=== PATIENT | male | born 1950 | race Caucasian/White ===

== ENCOUNTER 2018-06-12 14:22 | Emergency (ER) | payer BC ==
--- NOTE | 2018-06-12 16:09 | UC ---
Lower Extremity/Ankle HPI - HPI Summary HPI Summary: 67 y/o male presents to the urgent care c/o left ankle and foot pain s/p injury while getting into his war this morning around 1100PM. Pt reports he caught his foot in the car door door as he was getting into the car. Pain is 6/10. - History of Current Complaint Stated Complaint: FOOT INJURY Time Seen by Provider: 06/12/18 16:08 Hx Obtained From: Patient Onset/Duration: Sudden Onset, Lasting Hours - 8hrs, Still Present Severity Initially: Moderate Severity Currently: Moderate Pain Intensity: 6 - w/ movement or weight bearing Pain Scale Used: 0-10 Numeric Aggravating Factor(s): Standing, Ambulation Alleviating Factor(s): Rest, OTC Meds Able to Bear Weight: Yes - Risk Factors Gout Risk Factors: Negative DVT Risk Factors: Negative Septic Arthritis Risk Factor: Negative - Allergies/Home Medications Allergies/Adverse Reactions: Allergies Allergy/AdvReac Type Severity Reaction Status Date / Time No Known Allergies Allergy Verified 06/12/18 16:14 PMH/Surg Hx/FS Hx/Imm Hx Previously Healthy: Yes Endocrine History: Hypothyroidism, Dyslipidemia Cardiovascular History: Hypertension, Atrial Fibrillation Other GI/ History: Polycystic kidney disease Cancer History: Prostate Cancer Other History Of: Anticoagulant Therapy - not current - Surgical History Surgical History: Yes Surgery Procedure, Year, and Place: 03/2013 [place] [facility] [place], [place]. 2009 CARDIOVERSION, [place]. 08/2012 KIDNEY STONE [place]RI[place] [facility] [place] 2002 ARTHROSCOPIC SURGERY RIGHT SHOULDER, [place]. RIGHT FOOT. HERNIA REPAIR, [place] 2011 - Social History Alcohol Use: Rare Substance Use Type: None Smoking Status (MU): Never Smoked Tobacco - Immunization History Most Recent Influenza Vaccination: 2013 Review of Systems Constitutional: Negative Skin: Negative Eyes: Negative ENT: Negative Respiratory: Negative Cardiovascular: Negative Gastrointestinal: Negative Genitourinary: Negative Motor: Negative Neurovascular: Negative Musculoskeletal: Decreased ROM - left ankle and foot, Other: - left ankle pain and foot s/p injury Neurological: Negative Psychological: Negative Is Patient Immunocompromised?: No All Other Systems Reviewed And Are Negative: Yes Physical Exam - Summary Physical Exam Summary: Vital Signs Reviewed: Yes General: well developed, well nourished male, sitting in the examining table w/ o any apparent distress Eyes: Positive: Conjunctiva Clear - PERRLA, EOMI, ENT: Positive: Normal ENT inspection, Hearing grossly normal, Pharynx normal, TMs normal Neck: Positive: Supple, Nontender, No Lymphadenopathy Respiratory: Positive: Chest non-tender, Lungs clear, Normal breath sounds, No respiratory distress Cardiovascular: Positive: RRR, No Murmur, Pulses Normal, Brisk Capillary Refill Abdomen Description: Positive: Nontender, No Organomegaly, Soft. Negative: CVA Tenderness (R), CVA Tenderness (L) Bowel Sounds: Positive: Present Musculoskeletal: - Left Ankle: Pt is able to bear weight and ambulate w/ limping. The R ankle is without obvious asymmetry or deformity when compared to the L ankle. Decreased ROM due to pain. Moderate swelling at the lateral malleolus, with tenderness to palpation. No ecchymosis or bruising observed. Tenderness to palpation over the medial malleolus , no swelling observed. Talar tilt test is negative for ligament laxity to valgus or varus stress. Negative anterior drawer. Peroneal nerve is intact with strong eversion and plantar flexion. Positive sensation over the Rt foot and Rt ankle, positive pulses, capillary refill intact Neurological Exam: Normal Psychological Exam: Normal Skin: warm and dry Triage Information Reviewed: Yes Lower Extremity Course/Dx - Differential Dx/Diagnosis Differential Diagnosis/HQI/PQRI: Contusion, Fracture (Closed), Sprain, Strain, Tendonitis Provider Diagnoses: 1- left ankle and foot pain s/p injury. 2- left ankle w/ a small avulsion fracture of the lateral malleolus. 3- Syncope. 4- Bradycardia Discharge - Discharge Plan Condition: Stable Patient Education Materials: Ankle Fracture (ED), Syncope (ED), Low-Sodium Diet (ED) Referrals: Sudhir Gross MD [Medical Doctor] - Luzmaria Bowen MD [Primary Care Provider] - 1 Week Dasia Hernandez MD [Medical Doctor] - 1 Day Additional Instructions: 1-You probably had a Vasovagal syncope probably due to pain 2- I spoke w/ DR Talamantes [employer] farmer and he reccomended for you to call your [employer] Technician DR Hernandez tomorrow morning for f/u check up. Hoever if syou develop SOB, dizziness, chest pain, please go immediately to the ER for further management 3-Please take medications as directed to alleviate pain and swelling. 4-Please apply ice, keep your ankle immobilized with the splint. Avoid weight bearing using the crutches. Elevate your ankle. 5- Please f/u with Orthopedic Dr Gross 2-3 days is not improvement of symptoms for further evaluation and treatment. 6-Your BP is elevated today. please decrease salt in your diet, monitor BP and if it continues to be elevated please f/u with your PCP for further management - Billing Disposition and Condition Condition: STABLE
[2018-06-12] MEDS ORDERED: Acetaminophen TAB* 325 MG PO ONE (16:38)
--- NOTE | 2018-06-12 17:15 | RAD ---
Indication: LEFT foot and ankle pain following injury. Comparison: No relevant prior exams available on the [facility] [place] PACS for comparison. Technique: AP, mortise, and lateral views LEFT ankle. AP, lateral, and oblique views LEFT foot. Report: Ankle: Normal articular alignment. Suggestion of small avulsion fracture from the caudal margin of the lateral malleolus most conspicuous on the AP foot radiograph. Talocrural joint effusion. Minimal polyarticular osteophytosis. Negative for significant joint space narrowing. Nonfocal soft tissue swelling. Foot: Negative for fracture or articular malalignment. Normal variant bipartite sesamoid at the medial head of the flexor hallucis brevis. Soft tissue swelling most prominent over the lateral aspect of the hind and midfoot. IMPRESSION: #. Probable small avulsion fracture from the tip of the lateral malleolus corresponding with the origin of the ATFL. #. Talocrural joint effusion. #. Normal articular alignment.
--- NOTE | 2018-06-12 17:15 | RAD ---
Indication: LEFT foot and ankle pain following injury. Comparison: No relevant prior exams available on the [facility] [place]. Technique: AP, mortise, and lateral views LEFT ankle. AP, lateral, and oblique views LEFT foot. Report: Ankle: Normal articular alignment. Suggestion of small avulsion fracture from the caudal margin of the lateral malleolus most conspicuous on the AP foot radiograph. Talocrural joint effusion. Minimal polyarticular osteophytosis. Negative for significant joint space narrowing. Nonfocal soft tissue swelling. Foot: Negative for fracture or articular malalignment. Normal variant bipartite sesamoid at the medial head of the flexor hallucis brevis. Soft tissue swelling most prominent over the lateral aspect of the hind and midfoot. IMPRESSION: #. Probable small avulsion fracture from the tip of the lateral malleolus corresponding with the origin of the ATFL. #. Talocrural joint effusion. #. Normal articular alignment.
[2018-06-12] MEDS ORDERED: NS 0.9% 1000 ML* 1,000 ML IV ONE (17:35)
[2018-06-12 18:42] VITALS: BP 137/78
--- NOTE | 2018-06-13 23:40 | OP ---
CC: Dr. Luzmaria Bowen OPERATIVE REPORT: DATE OF IMPLANT: 06/12/18 DATE OF : 48 SURGEON: Dasia Hernandez MD OPERATIVE PROCEDURE: LINQ implantation. INDICATIONS: The patient has a LINQ and has asymptomatic paroxysmal AFib. The current LINQ has reac hed replacement and the decision was made to implant a new device. The indications, risks, and benef its of the procedure were discussed with the patient. He was amenable to proceeding. DESCRIPTION OF PROCEDURE: The left fourth intercostal space just lateral to the sternum was prepped and draped in the usual sterile fashion. The current event monitor was identified and we went just i nferior to this. A time-out was called. Following this, the patient received 6 cc of 1% lidocaine wi th epi for local anesthesia. Using the knife and a kit, a small incision was made. Using the tunnel ing device and the kit, a small tunnel was made inferolaterally to the neck and then using the plunge r, the device was slid into the tunnel. Sensing was checking and found to be good. Hemostasis was o btained and then the small irena was closed using Steri-Strips and with an external dressing applied. FINDINGS: R waves are sensed at 0.75 millivolts. PROGRAMMING: The patient was set to detect AFib at 150 beats per minute or faster for 16 beats or lo nger. For bradyarrhythmias, 30 beats a minute, for 4 beats or longer and slower and pauses of 3 seco nds or longer. The patient was hemodynamically stable throughout the procedure and there were no complications. [id number]/[facility] #: [id number]
== END 2018-06-12 19:10 | disposition home health service (06) ==
LOC: UCEAST 14:22
DX: S82.62XA Displaced fracture of lateral malleolus of left fibula, initial encounter for closed fracture (principal); V89.0XXA Person injured in unspecified motor-vehicle accident, nontraffic, initial encounter; Y93.9 Activity, unspecified; Y92.9 Unspecified place or not applicable; R55 Syncope and collapse; R00.1 Bradycardia, unspecified
CPT/HCPCS: 93005; 96360; 99213; A9270-GY; G0463

== ENCOUNTER 2022-07-10 15:06 | Observation (INO) ==
[2022-07-10 16:43] LABS: ABS Lymphocytes 0.8 10^3/ul (1.0-4.8); ABS Monocytes 0.7 10^3/ul (0-0.8); ABS Neutrophils 7.1 10^3/ul (1.5-7.7); Eosinophil % 0.1 %; Hematocrit 36 % (42-52); Lymphocyte % 9.5 %; Mean Corpuscular HGB Conc 34 g/dL (31-36); Mean Corpuscular Hemoglobin 32 pg (27-31); Mean Corpuscular Volume 95 fL (80-94); Mean Platelet Volume 7.7 fL (7.4-10.4); Platelet Count 156 10^3/uL (150-450); Red Blood Count 3.75 10^6 /uL (4.18-5.48); Red Cell Distribution Width 13 % (10-15); White Blood Count 8.6 10^3/uL (3.5-10.8)
[2022-07-10 16:50] LABS: Urine Appearance Slightly Cloudy; Urine Bilirubin Negative (Negative); Urine Blood 3+ (Large) (Negative); Urine Color Straw; Urine Glucose Negative (Negative); Urine Ketones Negative (Negative); Urine Nitrite Positive (Negative); Urine Protein 1+ (30 mg/dL) (Negative); Urine Urobilinogen 0.2 (Negative) (Negative); Urine pH 5.5 (5.0-9.0)
[2022-07-10 17:29] LABS: Urine Bacteria 1+ (Absent); Urine Red Blood Cell 3+(>10/hpf) (Absent); Urine Squamous Epithelial Cell Present (Absent); Urine White Blood Cell 3+(>20/hpf) (Absent)
[2022-07-10 17:33] LABS: Potassium 4.3 mmol/L (3.5-5.0)
[2022-07-10] MEDS ORDERED: cefTRIAXone 1 gm/50 mL D5W 1 GM/50 ML BAG IV ONE (17:46)
[2022-07-10 17:47] LABS: Albumin 4.1 g/dL (3.2-5.2); Albumin/Globulin Ratio 1.4 (1-3); Calcium 8.7 mg/dL (8.6-10.3); Globulin 2.9 g/dL (2-4); Total Bilirubin 0.5 mg/dL (0.2-1.0); eGFR CKD-EPI 17.5 (>60)
[2022-07-10] MEDS ORDERED: Ondansetron 4 mg VIAL 2 MG/ML 2 ml VIAL IV PRN (20:06)
[2022-07-11 08:26] LABS: Calcium 8.2 mg/dL (8.6-10.3); Potassium 4.4 mmol/L (3.5-5.0); eGFR CKD-EPI 17.5 (>60)
[2022-07-11 09:16] LABS: C Reactive Protein 180.77 mg/L (<8.01)
[2022-07-11] MEDS ORDERED: cefTRIAXone 1 gm/50 mL D5W 1 GM/50 ML BAG IV SCH (18:00)
[2022-07-11] MEDS ORDERED: Senna/Docusate 8.6/50 mg (NF) TAB PO SCH (21:00)
[2022-07-11] MEDS ORDERED: Docusate LIQ 100 MG/10 ML UDC PO SCH (21:00)
[2022-07-11] MEDS ORDERED: Senna TAB 8.6 mg TAB PO SCH (21:00)
[2022-07-12 06:18] LABS: ABS Eosinophils 0.1 10^3/ul (0-0.6); ABS Lymphocytes 0.8 10^3/ul (1.0-4.8); ABS Monocytes 0.8 10^3/ul (0-0.8); ABS Neutrophils 6.7 10^3/ul (1.5-7.7); Eosinophil % 0.8 %; Hematocrit 33 % (42-52); Hemoglobin 11.1 g/dL (14.0-18.0); Lymphocyte % 9.5 %; Mean Corpuscular HGB Conc 34 g/dL (31-36); Mean Corpuscular Hemoglobin 32 pg (27-31); Mean Corpuscular Volume 94 fL (80-94); Platelet Count 151 10^3/uL (150-450); Red Blood Count 3.45 10^6 /uL (4.18-5.48); Red Cell Distribution Width 13 % (10-15); White Blood Count 8.3 10^3/uL (3.5-10.8)
[2022-07-12 07:19] LABS: Calcium 8.2 mg/dL (8.6-10.3); Magnesium 2.1 mg/dL (1.9-2.7); Potassium 4.2 mmol/L (3.5-5.0); eGFR CKD-EPI 17.8 (>60)
[2022-07-12 15:24] VITALS: BP 112/64
[2022-07-12] MEDS ORDERED: cefTRIAXone ADVAN VIAL 1 GM in NS 0.9% 50 ML 50 ML IV SCH (16:00)
== END 2022-07-12 17:05 | disposition home or self-care (01) ==
LOC: EDHOLD 15:06 → ED 15:06 → MED 07-11 14:02
PROVIDERS: ADMIT Hospitalist; ATTEND Hospitalist

== ENCOUNTER 2023-05-23 12:15 | Inpatient (IN) ==
[2023-05-23 13:07] LABS: Hematocrit 25.2 % (38-53); Hemoglobin 8.6 g/dL (13.2-16.3); Mean Corpuscular Hemoglobin 31.5 pg (27-33); Mean Corpuscular Hgb Conc 34.3 g/dL (31-36); Mean Corpuscular Volume 91.9 fL (80-97); Platelet Count 55 10^3/uL (150-450); Red Blood Count 2.74 10^6/uL (4.06-5.63); Red Cell Distribution Width 15.3 % (12-17); White Blood Count 2.3 10^3/uL (3.6-10.2)
[2023-05-23 13:26] LABS: Albumin 3.5 g/dL (3.2-5.2); Albumin/Globulin Ratio 1.1 (1-3); C Reactive Protein 309.01 mg/L (<8.01); Calcium 8.8 mg/dL (8.6-10.3); Creatinine, Serum 6.58 mg/dL (0.67-1.17); Globulin 3.3 g/dL (2-4); Potassium 4.2 mmol/L (3.5-5.0); Total Bilirubin 0.6 mg/dL (0.2-1.0); Total Protein 6.8 g/dL (6.4-8.9); eGFR CKD-EPI 8.3 (>60)
[2023-05-23] MEDS ORDERED: Lactated Ringers 1000 ml BAG 1,000 ML IV ONE (13:35)
[2023-05-23 13:52] LABS: RBC Parasite Smear POSITIVE (No Parasite)
[2023-05-23 14:01] LABS: Polychromasia 1+
[2023-05-23 14:03] LABS: ABS Lymphocytes 0.6 10^3/uL (1.0-4.8); ABS Monocytes 0.4 10^3/uL (0.0-1.1); ABS Neutrophils 1.2 10^3/uL (1.5-7.6); Eosinophil % 0.5 %; Lymphocyte % 27.7 %; Nucleated Red Blood Cells % 0.2 /100 WBC (0.0-0.4)
[2023-05-23 14:14] LABS: INR 1.6 (0.88-1.18)
[2023-05-23 14:22] LABS: High Sensitivity Troponin 1 Hr 14 pg/mL (<20)
[2023-05-23 17:42] LABS: Urine Appearance Cloudy; Urine Bilirubin Negative (Negative); Urine Blood 3+ (Negative); Urine Color Yellow; Urine Glucose Negative (Negative); Urine Ketones Negative (Negative); Urine Nitrite Negative (Negative); Urine Protein 1+(30 mg/dL) (Negative); Urine Specific Gravity 1.013 (1.002-1.030); Urine Urobilinogen Negative (Negative)
[2023-05-23 17:46] LABS: Urine Bacteria 1+ (Absent); Urine Red Blood Cell 1+(3-5/hpf) (Absent); Urine Squamous Epithelial Cell Present (Absent); Urine White Blood Cell 1+(6-10/hpf) (Absent); Urine Yeast Present (Absent)
[2023-05-23 19:06] LABS: Calcium 8.4 mg/dL (8.6-10.3); Creatinine, Serum 6.41 mg/dL (0.67-1.17); Potassium 5.1 mmol/L (3.5-5.0); eGFR CKD-EPI 8.6 (>60)
[2023-05-23] MEDS ORDERED: NS 0.9% 1000 ml BAG 1,000 ML IV SCH (19:15)
[2023-05-24 05:30] LABS: ABS Lymphocytes 0.7 10^3/uL (1.0-4.8); ABS Monocytes 0.5 10^3/uL (0.0-1.1); Eosinophil % 0.3 %; Hematocrit 20.6 % (38-53); Hemoglobin 7.3 g/dL (13.2-16.3); Mean Corpuscular Hemoglobin 31.6 pg (27-33); Mean Corpuscular Hgb Conc 35.3 g/dL (31-36); Mean Corpuscular Volume 89.6 fL (80-97); Mean Platelet Volume 9.1 fL (7.5-11.2); Nucleated Red Blood Cells % 0.2 /100 WBC (0.0-0.4); Platelet Count 57 10^3/uL (150-450); White Blood Count 2.2 10^3/uL (3.6-10.2)
[2023-05-24 05:42] LABS: Calcium 7.9 mg/dL (8.6-10.3); Creatinine, Serum 6.3 mg/dL (0.67-1.17); Potassium 4.5 mmol/L (3.5-5.0); eGFR CKD-EPI 8.7 (>60)
[2023-05-24] MEDS: Lidocaine PATCH 4% TOPICAL SCH (09:58)
[2023-05-24] MEDS ORDERED: Sodium Bicarb 650 mg (ANTACID) TAB PO SCH (11:30)
[2023-05-24] MEDS ORDERED: Azithromycin 500 mg/250 ml NS 500 MG/250 ML BAG IVPB SCH (12:00)
[2023-05-24] MEDS: Azithromycin 500 mg/250 ml NS 500 MG/250 ML BAG IVPB SCH (12:22)
[2023-05-24] MEDS: Sodium Bicarb 650 mg (ANTACID) TAB PO SCH ×2 (12:22→20:58)
[2023-05-24] MEDS ORDERED: Acetaminophen IV 1 GM/100ML 1,000 MG/100 ML BAG IV ONE (22:05)
[2023-05-25 05:59] LABS: ABS Lymphocytes 0.8 10^3/uL (1.0-4.8); ABS Monocytes 0.4 10^3/uL (0.0-1.1); ABS Neutrophils 0.8 10^3/uL (1.5-7.6); Eosinophil % 0.7 %; Hematocrit 19.1 % (38-53); Hemoglobin 6.6 g/dL (13.2-16.3); Lymphocyte % 39.6 %; Mean Corpuscular Hemoglobin 31.5 pg (27-33); Mean Corpuscular Hgb Conc 34.5 g/dL (31-36); Mean Corpuscular Volume 91.2 fL (80-97); Nucleated Red Blood Cells % 0.1 /100 WBC (0.0-0.4); Platelet Count 73 10^3/uL (150-450); Red Blood Count 2.09 10^6/uL (4.06-5.63); Red Cell Distribution Width 15.4 % (12-17); White Blood Count 2.1 10^3/uL (3.6-10.2)
[2023-05-25 06:14] LABS: Calcium 8.2 mg/dL (8.6-10.3); Creatinine, Serum 6.26 mg/dL (0.67-1.17); Potassium 4.8 mmol/L (3.5-5.0); eGFR CKD-EPI 8.8 (>60)
[2023-05-25] MEDS: Lidocaine PATCH 4% TOPICAL SCH (09:14)
[2023-05-25] MEDS ORDERED: Ondansetron 4 mg VIAL 2 MG/ML 2 ml VIAL IV ONE (09:47)
[2023-05-25] MEDS ORDERED: Pantoprazole VIAL 40 MG VIAL IV ONE (09:50)
[2023-05-25] MEDS: Sodium Bicarb 650 mg (ANTACID) TAB PO SCH ×2 (10:26→20:43)
[2023-05-25] MEDS: Azithromycin 500 mg/250 ml NS 500 MG/250 ML BAG IVPB SCH (11:16)
[2023-05-25 11:38] LABS: TSH Ultra Thyroid Stim Horm 5.22 mcIU/mL (0.34-5.60)
[2023-05-25 11:40] LABS: Free T4 0.81 ng/dL (0.61-1.12)
[2023-05-25 16:40] LABS: Hematocrit 20.4 % (38-53); Hemoglobin 7.1 g/dL (13.2-16.3); Mean Corpuscular Hemoglobin 31.4 pg (27-33); Mean Corpuscular Hgb Conc 34.6 g/dL (31-36); Mean Corpuscular Volume 90.7 fL (80-97); Mean Platelet Volume 8.1 fL (7.5-11.2); Platelet Count 84 10^3/uL (150-450); Red Blood Count 2.24 10^6/uL (4.06-5.63); Red Cell Distribution Width 15.3 % (12-17)
[2023-05-25 16:50] LABS: Albumin 2.8 g/dL (3.2-5.2); Calcium 8.1 mg/dL (8.6-10.3); Creatinine, Serum 6.09 mg/dL (0.67-1.17); Globulin 2.7 g/dL (2-4); Potassium 4.7 mmol/L (3.5-5.0); Total Bilirubin 0.5 mg/dL (0.2-1.0); Total Protein 5.5 g/dL (6.4-8.9); eGFR CKD-EPI 9.1 (>60)
[2023-05-25 16:55] LABS: ABS Lymphocytes 0.8 10^3/uL (1.0-4.8); ABS Monocytes 0.4 10^3/uL (0.0-1.1); ABS Neutrophils 0.8 10^3/uL (1.5-7.6); Eosinophil % 0.4 %; Lymphocyte % 38.3 %; Nucleated Red Blood Cells % 0.1 /100 WBC (0.0-0.4)
[2023-05-25] MEDS ORDERED: Ondansetron 4 mg VIAL 2 MG/ML 2 ml VIAL IV PRN (17:24)
[2023-05-25] MEDS ORDERED: Lactated Ringers 1000 ml BAG 1,000 ML IV SCH (18:00)
[2023-05-25] MEDS: Acetaminophen IV 1 GM/100ML 1,000 MG/100 ML BAG IV PRN (20:43)
[2023-05-25 23:06] LABS: Hematocrit 19.8 % (38-53); Hemoglobin 6.9 g/dL (13.2-16.3); Mean Corpuscular Hemoglobin 31.7 pg (27-33); Mean Corpuscular Hgb Conc 35.1 g/dL (31-36); Mean Corpuscular Volume 90.5 fL (80-97); Mean Platelet Volume 8.3 fL (7.5-11.2); Platelet Count 93 10^3/uL (150-450); Red Blood Count 2.19 10^6/uL (4.06-5.63); Red Cell Distribution Width 15.3 % (12-17); White Blood Count 2.3 10^3/uL (3.6-10.2)
[2023-05-26 06:11] LABS: Albumin 2.8 g/dL (3.2-5.2); Calcium 8.1 mg/dL (8.6-10.3); Creatinine, Serum 5.92 mg/dL (0.67-1.17); Globulin 2.7 g/dL (2-4); Magnesium 1.9 mg/dL (1.9-2.7); Potassium 4.5 mmol/L (3.5-5.0); Total Bilirubin 0.6 mg/dL (0.2-1.0); Total Protein 5.5 g/dL (6.4-8.9); eGFR CKD-EPI 9.4 (>60)
[2023-05-26 06:13] LABS: ABS Lymphocytes 0.8 10^3/uL (1.0-4.8); ABS Monocytes 0.5 10^3/uL (0.0-1.1); Eosinophil % 0.8 %; Hematocrit 21.5 % (38-53); Hemoglobin 7.6 g/dL (13.2-16.3); Lymphocyte % 35.8 %; Mean Corpuscular Hemoglobin 31.8 pg (27-33); Mean Corpuscular Hgb Conc 35.2 g/dL (31-36); Mean Corpuscular Volume 90.3 fL (80-97); Mean Platelet Volume 8.6 fL (7.5-11.2); Nucleated Red Blood Cells % 0.1 /100 WBC (0.0-0.4); Platelet Count 99 10^3/uL (150-450); Red Blood Count 2.38 10^6/uL (4.06-5.63); White Blood Count 2.3 10^3/uL (3.6-10.2)
[2023-05-26] MEDS: Lidocaine PATCH 4% TOPICAL SCH (08:55)
[2023-05-26] MEDS: Sodium Bicarb 650 mg (ANTACID) TAB PO SCH ×2 (08:58→19:46)
[2023-05-26] MEDS: Acetaminophen IV 1 GM/100ML 1,000 MG/100 ML BAG IV PRN (09:14)
[2023-05-27 06:21] LABS: Hematocrit 22.4 % (38-53); Mean Corpuscular Hemoglobin 31.9 pg (27-33); Mean Corpuscular Hgb Conc 35.8 g/dL (31-36); Mean Platelet Volume 8.4 fL (7.5-11.2); Platelet Count 131 10^3/uL (150-450); Red Blood Count 2.52 10^6/uL (4.06-5.63); Red Cell Distribution Width 15.1 % (12-17); White Blood Count 2.5 10^3/uL (3.6-10.2)
[2023-05-27 06:35] LABS: Calcium 8.2 mg/dL (8.6-10.3); Creatinine, Serum 5.64 mg/dL (0.67-1.17); Magnesium 1.9 mg/dL (1.9-2.7); Potassium 4.5 mmol/L (3.5-5.0)
[2023-05-27 07:22] LABS: Hypochromasia 1+; Polychromasia 1+
[2023-05-27 07:23] LABS: ABS Lymphocytes 0.9 10^3/uL (1.0-4.8); ABS Monocytes 0.5 10^3/uL (0.0-1.1); ABS Neutrophils 1.1 10^3/uL (1.5-7.6); ABS Nucleated RBC 0.01 10^3/ul; Eosinophil % 1.1 %; Lymphocyte % 34.7 %; Nucleated Red Blood Cells % 0.4 /100 WBC (0.0-0.4)
[2023-05-27] MEDS ORDERED: Magnesium Hydroxide LIQ 30 ML UDC PO SCH (09:00)
[2023-05-27] MEDS: Sodium Bicarb 650 mg (ANTACID) TAB PO SCH (09:25)
[2023-05-27] MEDS: Lidocaine PATCH 4% TOPICAL SCH (09:27)
[2023-05-27 09:49] VITALS: BP 121/76
== END 2023-05-27 13:43 | disposition home or self-care (01) | DRG 724 ==
LOC: ED 12:15 → EDHOLD 15:27 → MED 21:45
PROVIDERS: ADMIT Internal Medicine; ATTEND Internal Medicine

== ENCOUNTER 2024-02-14 06:12 | Observation (INO) ==
[~2024-02-14 06:12] MED LIST: Naloxone 0.4 mg VIAL 0.4 mg/ml 1 ml VIAL IV PRN; Ondansetron 4 mg VIAL 2 MG/ML 2 ml VIAL IV PRN; fentaNYL 100 mcg/2 ml 50 MCG/ML VIAL IV PRN
[2024-02-14] MEDS ORDERED: ceFAZolin 2 GM in NS PREMIX 2 GM/100 ML BAG IVPB ONE (06:54)
[2024-02-14] MEDS: Lactated Ringers 1000 ml BAG 1,000 ML IV SCH ×2 (07:12→14:35)
[2024-02-14] MEDS: Buffered Lidocaine 1% SYRIN 1 ml INTRADERM ONE (07:12)
[2024-02-14 07:17] LABS: Rapid COVID-19 Molecular Undetected (Undetected)
[2024-02-14 07:34] LABS: INR 1.04 (0.83-1.13)
[2024-02-14 08:03] LABS: Calcium 8.1 mg/dL (8.6-10.3); Creatinine, Serum 5.36 mg/dL (0.67-1.17); Potassium 4.6 mmol/L (3.5-5.0); eGFR CKD-EPI 10.5 (>60)
[2024-02-14] MEDS ORDERED: Midazolam 2 mg/2 ml VIAL 1 mg/ml 2 ml VIAL (2 mg) ONE (08:59)
[2024-02-14] MEDS ORDERED: Rocuronium 50 mg VIAL 10 mg/ml 5 ml VIAL (50 mg) ONE (09:00)
[2024-02-14] MEDS ORDERED: fentaNYL 250 mcg/5 ml 50 MCG/ML 5 ml VIAL (250 MCG) ONE (09:00)
[2024-02-14] MEDS ORDERED: Lidocaine 2% PF 5 ML VIAL ONE (09:01)
[2024-02-14] MEDS ORDERED: Phenylephrine IV 10 MG/ML 1 ml VIAL ONE (09:02)
[2024-02-14] MEDS ORDERED: Propofol 10 MG/ML 20 ML BTL ONE (09:04)
[2024-02-14] MEDS ORDERED: Albumin Human 5% 12.5 GM/250 ML BTL IV ONE (09:06)
[2024-02-14] MEDS ORDERED: HYDROmorphone 0.5 MG/0.5 ML SYRINGE ONE (10:15)
[2024-02-14] MEDS ORDERED: Magnesium Hydroxide LIQ 30 ML UDC PO PRN (10:52)
[2024-02-14] MEDS ORDERED: Lactulose 30 ml UDC PO PRN (10:52)
[2024-02-14] MEDS ORDERED: Morphine 2 MG/ML SYRINGE IV PRN (10:52)
[2024-02-14] MEDS ORDERED: Ondansetron ODT 4 mg TAB 4 MG TAB PO PRN (10:52)
[2024-02-14] MEDS ORDERED: ROPIVACAINE 5 MG/ML 30 ML BTL (0.5%) ONE (11:12)
[2024-02-14] MEDS ORDERED: Acetaminophen IV 1 GM/100ML 1,000 MG/100 ML BAG IV ONE (11:27)
[2024-02-14] MEDS: Ondansetron 4 mg VIAL 2 MG/ML 2 ml VIAL IV PRN (15:12)
[2024-02-14] MEDS: ceFAZolin 1 GM ADVAN 1 GM in NS 0.9% 50 ML 50 ML IVPB SCH (17:30)
[2024-02-14] MEDS: Magnesium Hydroxide LIQ 30 ML UDC PO SCH (20:09)
[2024-02-15 06:02] LABS: Hematocrit 24.3 % (38-53); Hemoglobin 8.3 g/dL (13.2-16.3); Mean Platelet Volume 8.3 fL (7.5-11.2); Platelet Count 124 10^3/uL (150-450)
[2024-02-15 06:20] LABS: Calcium 7.6 mg/dL (8.6-10.3); Creatinine, Serum 5.16 mg/dL (0.67-1.17); Potassium 4.8 mmol/L (3.5-5.0)
[2024-02-15] MEDS: Vitamin THERAPEUTIC TAB PO SCH (08:27)
[2024-02-15 09:43] VITALS: BP 122/71
== END 2024-02-15 12:40 | disposition home or self-care (01) ==
LOC: OR 06:12 → SSU 06:12
PROVIDERS: ADMIT Orthopaedic Surgery Adult Reconstructive Orthopaedic Surgery; ATTEND Orthopaedic Surgery Adult Reconstructive Orthopaedic Surgery

== ENCOUNTER 2024-04-03 14:51 | Inpatient (IN) ==
[2024-04-03 15:29] LABS: ABS Lymphocytes 0.8 10^3/uL (1.0-4.8); ABS Monocytes 0.3 10^3/uL (0.0-1.1); ABS Neutrophils 2.5 10^3/uL (1.5-7.6); Eosinophil % 0.1 %; Hematocrit 29.2 % (38-53); Hemoglobin 9.9 g/dL (13.2-16.3); Lymphocyte % 22.7 %; Mean Corpuscular Hemoglobin 31.6 pg (27-33); Mean Corpuscular Hgb Conc 34.1 g/dL (31-36); Mean Corpuscular Volume 92.9 fL (80-97); Mean Platelet Volume 8.8 fL (7.5-11.2); Nucleated Red Blood Cells % 0.1 %/100WBC (0.0-0.8); Platelet Count 102 10^3/uL (150-450); Red Blood Count 3.14 10^6/uL (4.06-5.63); Red Cell Distribution Width 13.9 % (12-17); White Blood Count 3.6 10^3/uL (3.6-10.2)
[2024-04-03 15:54] LABS: Albumin 3.6 g/dL (3.2-5.2); Albumin/Globulin Ratio 1.3 (1-3); Calcium 7.9 mg/dL (8.6-10.3); Creatinine, Serum 5.85 mg/dL (0.67-1.17); Globulin 2.7 g/dL (2-4); Potassium 4.8 mmol/L (3.5-5.0); Total Bilirubin 0.4 mg/dL (0.2-1.0); Total Protein 6.3 g/dL (6.4-8.9); eGFR CKD-EPI 9.5 (>60)
[2024-04-03 16:33] LABS: Urine Appearance Turbid; Urine Bilirubin Negative (Negative); Urine Blood 3+ (Negative); Urine Color Colorless; Urine Glucose Negative (Negative); Urine Ketones Negative (Negative); Urine Nitrite Negative (Negative); Urine Protein 1+ (>=30 mg/dL) (Negative); Urine Specific Gravity 1.014 (1.002-1.030); Urine Urobilinogen Negative (Negative); Urine pH 5.5 (5.0-8.0)
[2024-04-03 17:06] LABS: Uric Acid 6.5 mg/dL (4.4-7.6)
[2024-04-03 17:19] LABS: Urine Bacteria 1+ /HPF (Absent); Urine Red Blood Cell 3+(>10/hpf) /HPF (0-Trace); Urine White Blood Cell Trace(0-5/hpf) /HPF (0-Trace)
[2024-04-03 17:51] LABS: High Sensitivity Troponin 1 Hr 16 pg/mL (<20)
[2024-04-03] MEDS: NS 0.9% 1000 ml BAG 1,000 ML IV ONE (21:25)
[2024-04-03] MEDS ORDERED: Senna TAB 8.6 mg TAB PO PRN (21:55)
[2024-04-03] MEDS ORDERED: Metoprolol Tartrate 5 mg VIAL 5 ml VIAL (1 mg/ml) IV PRN (22:35)
[2024-04-03] MEDS: Metoprolol Tartrate 5 mg VIAL 5 ml VIAL (1 mg/ml) IV ONE (22:57)
[2024-04-03 23:55] LABS: TSH Ultra Thyroid Stim Horm 2.24 mcIU/mL (0.34-5.60)
[2024-04-04] MEDS: Heparin 5000 UNITS/ML 1 mL VIAL SUBCUT SCH
[2024-04-04] MEDS: Metoprolol Tartrate 5 mg VIAL 5 ml VIAL (1 mg/ml) IV PRN (00:56)
[2024-04-04] MEDS ORDERED: Heparin 5000 UNITS/ML 1 mL VIAL IV SCH (01:00)
[2024-04-04 02:07] LABS: Creatinine, Serum 5.72 mg/dL (0.67-1.17); eGFR CKD-EPI 9.7 (>60)
[2024-04-04] MEDS: Heparin DRIP 25,000 UNITS BAG 25,000 UNITS/250 ML BAG IV SCH (02:37)
[2024-04-04 08:31] LABS: Hematocrit 26.8 % (38-53); Hemoglobin 9.2 g/dL (13.2-16.3); Mean Corpuscular Hemoglobin 31.5 pg (27-33); Mean Corpuscular Hgb Conc 34.2 g/dL (31-36); Mean Corpuscular Volume 92.1 fL (80-97); Red Blood Count 2.91 10^6/uL (4.06-5.63); Red Cell Distribution Width 13.6 % (12-17); White Blood Count 2.8 10^3/uL (3.6-10.2)
[2024-04-04] MEDS: Lidocaine 1% w EPI 1:100,000 MDV 20 ML VIAL INJ ONE (09:00)
[2024-04-04] MEDS: Ondansetron 4 mg VIAL 2 MG/ML 2 ml VIAL IV PRN (09:05)
[2024-04-04] MEDS: Acetaminophen IV 1 GM/100ML 1,000 MG/100 ML BAG IV SCH (09:08)
[2024-04-04 09:12] LABS: Calcium 7.6 mg/dL (8.6-10.3); Magnesium 1.9 mg/dL (1.9-2.7); Potassium 4.4 mmol/L (3.5-5.0)
[2024-04-04 09:21] LABS: ABS Lymphocytes 0.7 10^3/uL (1.0-4.8); ABS Monocytes 0.3 10^3/uL (0.0-1.1); ABS Neutrophils 1.8 10^3/uL (1.5-7.6); Eosinophil % 0.1 %; Lymphocyte % 24.6 %; Mean Platelet Volume 9.3 fL (7.5-11.2); Nucleated Red Blood Cells % 0.2 %/100WBC (0.0-0.8); Platelet Count 88 10^3/uL (150-450)
[2024-04-04] MEDS: CMCS: Pravastatin 20 mg TAB (NF) PO SCH (09:22)
[2024-04-04] MEDS: Pantoprazole VIAL 40 MG VIAL IV SCH (11:11)
[2024-04-04] MEDS: Lactated Ringers 1000 ml BAG 1,000 ML IV SCH (11:11)
[2024-04-04] MEDS: Polyethylene Glycol 3350 17 GM PACKET PO ONE (11:13)
[2024-04-04 11:28] LABS: Calcium 7.4 mg/dL (8.6-10.3); Creatinine, Serum 5.78 mg/dL (0.67-1.17); Phosphorus 5.8 mg/dL (2.5-5.0); Potassium 4.5 mmol/L (3.5-5.0); eGFR CKD-EPI 9.6 (>60)
[2024-04-04] MEDS: Heparin 1,000 UNIT/ML 10 ml (10,000 UNITS) CATHLAB/DIALYSIS DIALYSIS PRN (22:30)
[2024-04-05 05:53] LABS: Hematocrit 24.6 % (38-53); Hemoglobin 8.3 g/dL (13.2-16.3); Mean Corpuscular Hemoglobin 31.4 pg (27-33); Mean Corpuscular Hgb Conc 33.9 g/dL (31-36); Mean Corpuscular Volume 92.6 fL (80-97); Mean Platelet Volume 8.6 fL (7.5-11.2); Platelet Count 85 10^3/uL (150-450); Red Blood Count 2.66 10^6/uL (4.06-5.63); Red Cell Distribution Width 13.8 % (12-17); White Blood Count 2.4 10^3/uL (3.6-10.2)
[2024-04-05 06:06] LABS: ALT 8 U/L (7-52); AST 14 U/L (13-39); Albumin 2.9 g/dL (3.2-5.2); Albumin/Globulin Ratio 1.3 (1-3); Alkaline Phosphatase 45 U/L (35-149); Anion Gap 9 mmol/L (2-16); Blood Urea Nitrogen 83 mg/dL (6-24); CO2 Carbon Dioxide 19 mmol/L (22-32); Calcium 7.5 mg/dL (8.6-10.3); Chloride 104 mmol/L (101-111); Creatinine, Serum 6.03 mg/dL (0.67-1.17); Globulin 2.2 g/dL (2-4); Glucose 114 mg/dL (70-100); Phosphorus 4.8 mg/dL (2.5-5.0); Potassium 4.5 mmol/L (3.5-5.0); Sodium 132 mmol/L (135-145); Total Bilirubin 0.2 mg/dL (0.2-1.0); Total Protein 5.1 g/dL (6.4-8.9); eGFR CKD-EPI 9.1 (>60)
[2024-04-05 06:31] LABS: Folate > 20.00 ng/mL (5.90-24.80)
[2024-04-05 06:40] LABS: ABS Lymphocytes 0.9 10^3/uL (1.0-4.8); ABS Monocytes 0.3 10^3/uL (0.0-1.1); ABS Neutrophils 1.2 10^3/uL (1.5-7.6); Lymphocyte % 36.8 %; Nucleated Red Blood Cells % 0.2 %/100WBC (0.0-0.8); RBC Morphology Normal (Normal)
[2024-04-05] MEDS: Polyethylene Glycol 3350 17 GM PACKET PO PRN (08:04)
[2024-04-05] MEDS ORDERED: Sodium Phosphate ADULT ENEMA 133 ML BTL PR PRN (10:13)
[2024-04-05] MEDS ORDERED: Heparin 1,000 UNIT/ML 10 ml (10,000 UNITS) CATHLAB/DIALYSIS DIALYSIS SCH (13:38)
[2024-04-05] MEDS: Gentamicin 0.1% OINTMENT 15 GM TUBE TOPICAL SCH (13:48)
[2024-04-05] MEDS: Heparin *DIALYSIS* ONLY 1,000 UNITS/ML VIAL DIALYSIS SCH (13:48)
[2024-04-05] MEDS: Heparin 1,000 UNIT/ML 10 ml (10,000 UNITS) CATHLAB/DIALYSIS DIALYSIS SCH (20:13)
[2024-04-06 06:01] LABS: Calcium 7.2 mg/dL (8.6-10.3); Creatinine, Serum 5.97 mg/dL (0.67-1.17); Potassium 4.4 mmol/L (3.5-5.0); eGFR CKD-EPI 9.3 (>60)
[2024-04-06 06:06] LABS: Hematocrit 23.5 % (38-53); Mean Corpuscular Hemoglobin 31.4 pg (27-33); Mean Corpuscular Hgb Conc 34.1 g/dL (31-36); Mean Corpuscular Volume 92.1 fL (80-97); Mean Platelet Volume 9.1 fL (7.5-11.2); Platelet Count 91 10^3/uL (150-450); Red Blood Count 2.56 10^6/uL (4.06-5.63); White Blood Count 2.7 10^3/uL (3.6-10.2)
[2024-04-06 06:53] LABS: ABS Eosinophils 0.1 10^3/uL (0.0-0.5); ABS Lymphocytes 1.1 10^3/uL (1.0-4.8); ABS Monocytes 0.3 10^3/uL (0.0-1.1); ABS Neutrophils 1.2 10^3/uL (1.5-7.6); ABS Nucleated RBC 0.01 10^3/ul; Eosinophil % 2.2 %; Lymphocyte % 40.9 %; Nucleated Red Blood Cells % 0.3 %/100WBC (0.0-0.8); RBC Morphology Normal (Normal)
[2024-04-06] MEDS ORDERED: Sulfur Hexaflouride MICROSPHR 25 MG VIAL ONE (13:21)
[2024-04-06] MEDS: Polyethylene Glycol 3350 17 GM PACKET PO SCH (16:45)
[2024-04-06] MEDS: Senna TAB 8.6 mg TAB PO SCH (16:45)
[2024-04-06 18:49] LABS: Anaplasma phagocytophilum Positive (Negative); B. miyamotoi PCR, B Negative (Negative); Babesia divergens/MO-1 Negative (Negative); Babesia ducani Negative (Negative); Ehrlichia chaffeensis Negative (Negative); Ehrlichia ewingii/canis Negative (Negative); Ehrlichia muris eauclairensis Negative (Negative)
[2024-04-07 05:32] LABS: Hemoglobin 8.9 g/dL (13.2-16.3); Mean Corpuscular Hemoglobin 31.5 pg (27-33); Mean Corpuscular Hgb Conc 34.1 g/dL (31-36); Mean Corpuscular Volume 92.2 fL (80-97); Mean Platelet Volume 9.3 fL (7.5-11.2); Platelet Count 131 10^3/uL (150-450); Red Blood Count 2.82 10^6/uL (4.06-5.63); White Blood Count 4.3 10^3/uL (3.6-10.2)
[2024-04-07 05:49] LABS: Calcium 7.7 mg/dL (8.6-10.3); Creatinine, Serum 6.24 mg/dL (0.67-1.17); Magnesium 1.9 mg/dL (1.9-2.7); Potassium 4.2 mmol/L (3.5-5.0); eGFR CKD-EPI 8.8 (>60)
[2024-04-07 08:48] LABS: ABS Eosinophils 0.1 10^3/uL (0.0-0.5); ABS Monocytes 0.4 10^3/uL (0.0-1.1); ABS Neutrophils 1.9 10^3/uL (1.5-7.6); Eosinophil % 1.8 %; Lymphocyte % 46.6 %
[2024-04-07 08:49] LABS: RBC Morphology Normal (Normal)
[2024-04-07] MEDS: Magnesium Sulfate 2 gm BAG 2 GM/50 ML BAG IVPB ONE (08:59)
[2024-04-07 10:57] LABS: Hematocrit 23.6 % (38-53); Hemoglobin 7.9 g/dL (13.2-16.3); Mean Corpuscular Hemoglobin 30.7 pg (27-33); Mean Corpuscular Hgb Conc 33.5 g/dL (31-36); Mean Corpuscular Volume 91.6 fL (80-97); Mean Platelet Volume 8.5 fL (7.5-11.2); Platelet Count 132 10^3/uL (150-450); Red Blood Count 2.58 10^6/uL (4.06-5.63); Red Cell Distribution Width 14.2 % (12-17); White Blood Count 3.5 10^3/uL (3.6-10.2)
[2024-04-07] MEDS: Heparin 5000 UNITS/ML 1 mL VIAL IV SCH (11:30)
[2024-04-07] MEDS: Heparin DRIP 25,000 UNITS BAG 25,000 UNITS/250 ML BAG IV SCH (11:32)
[2024-04-07 11:40] LABS: Creatinine, Serum 6.02 mg/dL (0.67-1.17); eGFR CKD-EPI 9.2 (>60)
[2024-04-07 11:50] LABS: ABS Eosinophils 0.1 10^3/uL (0.0-0.5); ABS Lymphocytes 1.6 10^3/uL (1.0-4.8); ABS Monocytes 0.4 10^3/uL (0.0-1.1); ABS Neutrophils 1.4 10^3/uL (1.5-7.6); Eosinophil % 1.8 %; Lymphocyte % 44.8 %
[2024-04-08 07:41] LABS: Hematocrit 23.6 % (38-53); Hemoglobin 8.1 g/dL (13.2-16.3); Mean Corpuscular Hemoglobin 31.5 pg (27-33); Mean Corpuscular Hgb Conc 34.2 g/dL (31-36); Mean Corpuscular Volume 91.9 fL (80-97); Platelet Count 175 10^3/uL (150-450); Red Blood Count 2.56 10^6/uL (4.06-5.63); Red Cell Distribution Width 14.5 % (12-17); White Blood Count 3.6 10^3/uL (3.6-10.2)
[2024-04-08 08:42] LABS: ABS Eosinophils 0.1 10^3/uL (0.0-0.5); ABS Lymphocytes 2.1 10^3/uL (1.0-4.8); ABS Monocytes 0.2 10^3/uL (0.0-1.1); ABS Neutrophils 1.1 10^3/uL (1.5-7.6); Eosinophil % 3.9 %; Lymphocyte % 58.5 %; Nucleated Red Blood Cells % 0.1 %/100WBC (0.0-0.8); RBC Morphology Normal (Normal)
[2024-04-08 09:08] LABS: Calcium 7.8 mg/dL (8.6-10.3); Creatinine, Serum 5.71 mg/dL (0.67-1.17); Magnesium 2.3 mg/dL (1.9-2.7); Potassium 4.1 mmol/L (3.5-5.0); eGFR CKD-EPI 9.8 (>60)
[2024-04-09 06:23] LABS: ABS Eosinophils 0.1 10^3/uL (0.0-0.5); ABS Lymphocytes 2.1 10^3/uL (1.0-4.8); ABS Monocytes 0.4 10^3/uL (0.0-1.1); ABS Neutrophils 1.4 10^3/uL (1.5-7.6); ABS Nucleated RBC 0.01 10^3/ul; Eosinophil % 3.4 %; Hematocrit 25.6 % (38-53); Hemoglobin 8.6 g/dL (13.2-16.3); Lymphocyte % 52.4 %; Mean Corpuscular Hemoglobin 30.8 pg (27-33); Mean Corpuscular Hgb Conc 33.6 g/dL (31-36); Mean Corpuscular Volume 91.6 fL (80-97); Nucleated Red Blood Cells % 0.2 %/100WBC (0.0-0.8); Platelet Count 244 10^3/uL (150-450); Red Blood Count 2.79 10^6/uL (4.06-5.63); Red Cell Distribution Width 14.1 % (12-17); White Blood Count 4.1 10^3/uL (3.6-10.2)
[2024-04-09 09:54] VITALS: BP 155/88
[2024-04-09] MEDS: Polyethylene Glycol 3350 17 GM PACKET PO PRN (10:41)
== END 2024-04-09 13:29 | disposition home or self-care (01) | DRG 470 ==
LOC: EDHOLD 14:51 → ED 14:51 → MEDTELE 04-04 00:49
PROVIDERS: ADMIT Student in an Organized Health Care Education/Training Program; ATTEND Student in an Organized Health Care Education/Training Program

== ENCOUNTER 2024-08-01 14:42 | Inpatient (IN) ==
[2024-08-01 15:56] LABS: ABS Lymphocytes 0.7 10^3/uL (1.0-4.8); ABS Monocytes 0.4 10^3/uL (0.0-1.1); ABS Neutrophils 1.9 10^3/uL (1.5-7.6); Eosinophil % 0.4 %; Hematocrit 37.2 % (38-53); Hemoglobin 12.3 g/dL (13.2-16.3); Lymphocyte % 22.2 %; Mean Corpuscular Hemoglobin 30.8 pg (27-33); Mean Corpuscular Hgb Conc 33.2 g/dL (31-36); Mean Corpuscular Volume 92.9 fL (80-97); Mean Platelet Volume 7.3 fL (7.5-11.2); Nucleated Red Blood Cells % 0.1 %/100WBC (0.0-0.8); Platelet Count 142 10^3/uL (150-450); Red Cell Distribution Width 14.2 % (12-17)
[2024-08-01] MEDS: Ondansetron 4 mg VIAL 2 MG/ML 2 ml VIAL IV ONE (16:32)
[2024-08-01 16:42] LABS: Albumin 3.7 g/dL (3.2-5.2); Albumin/Globulin Ratio 1.5 (1-3); C Reactive Protein 4.19 mg/L (<8.01); Calcium 8.4 mg/dL (8.6-10.3); Creatinine, Serum 5.61 mg/dL (0.67-1.17); Globulin 2.4 g/dL (2-4); Potassium 4.4 mmol/L (3.5-5.0); Total Bilirubin 0.3 mg/dL (0.2-1.0); Total Protein 6.1 g/dL (6.4-8.9)
[2024-08-01 19:57] LABS: Urine Appearance Clear; Urine Bilirubin Negative (Negative); Urine Blood Trace (Negative); Urine Color Light-Yellow; Urine Glucose 1+ (>=70 mg/dL) (Negative); Urine Ketones Negative (Negative); Urine Nitrite Negative (Negative); Urine Protein Trace (Negative); Urine Specific Gravity 1.019 (1.002-1.030); Urine Urobilinogen Negative (Negative)
[2024-08-01 20:19] LABS: Magnesium 2.2 mg/dL (1.9-2.7); Phosphorus 4.2 mg/dL (2.5-5.0)
[2024-08-01] MEDS: Ondansetron 4 mg VIAL 2 MG/ML 2 ml VIAL IV PRN (22:04)
[2024-08-01] MEDS: Lactulose 30 ml UDC PO SCH (22:22)
[2024-08-02 07:30] LABS: ABS Eosinophils 0.1 10^3/uL (0.0-0.5); ABS Lymphocytes 0.9 10^3/uL (1.0-4.8); ABS Monocytes 0.6 10^3/uL (0.0-1.1); ABS Neutrophils 2.3 10^3/uL (1.5-7.6); Eosinophil % 1.6 %; Hemoglobin 11.5 g/dL (13.2-16.3); Lymphocyte % 24.3 %; Mean Corpuscular Hemoglobin 31.2 pg (27-33); Mean Corpuscular Hgb Conc 33.8 g/dL (31-36); Mean Corpuscular Volume 92.3 fL (80-97); Mean Platelet Volume 8.1 fL (7.5-11.2); Nucleated Red Blood Cells % 0.1 %/100WBC (0.0-0.8); Platelet Count 125 10^3/uL (150-450); Red Blood Count 3.68 10^6/uL (4.06-5.63); Red Cell Distribution Width 13.6 % (12-17); White Blood Count 3.9 10^3/uL (3.6-10.2)
[2024-08-02 07:47] LABS: Calcium 7.9 mg/dL (8.6-10.3); Creatinine, Serum 5.74 mg/dL (0.67-1.17); eGFR CKD-EPI 9.7 (>60)
[2024-08-02] MEDS: Pravastatin 20 mg TAB (NF) PO SCH (08:21)
[2024-08-02] MEDS: Heparin 1,000 UNIT/ML 10 ml (10,000 UNITS) CATHLAB/DIALYSIS DIALYSIS SCH (10:00)
[2024-08-02] MEDS ORDERED: Ondansetron ODT 4 mg TAB 4 MG TAB SL PRN (12:06)
[2024-08-02] MEDS: Gentamicin 0.1% OINTMENT 15 GM TUBE TOPICAL SCH (16:05)
[2024-08-02] MEDS: Mupirocin 2% OINT TUBE TOPICAL SCH (17:10)
[2024-08-02] MEDS: Polyethylene Glycol 3350 17 GM PACKET PO PRN (21:38)
[2024-08-03 07:05] LABS: ABS Eosinophils 0.1 10^3/uL (0.0-0.5); ABS Lymphocytes 1.5 10^3/uL (1.0-4.8); ABS Monocytes 0.6 10^3/uL (0.0-1.1); ABS Neutrophils 1.7 10^3/uL (1.5-7.6); Eosinophil % 2.3 %; Hematocrit 36.7 % (38-53); Hemoglobin 12.3 g/dL (13.2-16.3); Lymphocyte % 37.9 %; Mean Corpuscular Hgb Conc 33.6 g/dL (31-36); Mean Corpuscular Volume 92.2 fL (80-97); Mean Platelet Volume 7.7 fL (7.5-11.2); Nucleated Red Blood Cells % 0.1 %/100WBC (0.0-0.8); Platelet Count 141 10^3/uL (150-450); Red Blood Count 3.99 10^6/uL (4.06-5.63); Red Cell Distribution Width 14.1 % (12-17)
[2024-08-03 07:34] LABS: Calcium 8.1 mg/dL (8.6-10.3); Creatinine, Serum 5.62 mg/dL (0.67-1.17); Magnesium 2.1 mg/dL (1.9-2.7); Potassium 4.1 mmol/L (3.5-5.0); eGFR CKD-EPI 9.9 (>60)
[2024-08-03] MEDS: Alteplase (CATHFLO) 2 MG VIAL IV ONE (15:10)
[2024-08-04 05:29] LABS: Hematocrit 38.2 % (38-53); Hemoglobin 12.5 g/dL (13.2-16.3); Mean Corpuscular Hemoglobin 30.1 pg (27-33); Mean Corpuscular Hgb Conc 32.9 g/dL (31-36); Mean Corpuscular Volume 91.6 fL (80-97); Mean Platelet Volume 7.7 fL (7.5-11.2); Platelet Count 154 10^3/uL (150-450); Red Blood Count 4.17 10^6/uL (4.06-5.63); Red Cell Distribution Width 14.2 % (12-17)
[2024-08-04 06:17] LABS: Calcium 8.2 mg/dL (8.6-10.3); Creatinine, Serum 5.42 mg/dL (0.67-1.17); Potassium 4.3 mmol/L (3.5-5.0); eGFR CKD-EPI 10.4 (>60)
[2024-08-04 13:46] VITALS: BP 121/81
[2024-08-04] MEDS: COVID VAC 24-25 (12+) (Moderna) Syringe 0.5 mL IM ONE (16:54)
== END 2024-08-04 17:00 | disposition home or self-care (01) | DRG 466 ==
LOC: ED 14:42 → EDHOLD 14:42 → SUATTDRO 19:24 → EDHOLD 20:39 → MED 21:33
PROVIDERS: ADMIT Internal Medicine; ATTEND Student in an Organized Health Care Education/Training Program